=== PATIENT | female | born 1990 | race African-American/Black ===

== ENCOUNTER 2021-11-28 13:09 | Emergency (ER) | payer MEDICAID ==
[~2021-11-28] VITALS: Ht 170.2 cm; Wt 104.0 kg
[2021-11-28] MEDS ORDERED: BALANCED SALT IRRIG SOLN 15ML TOP ONE (14:45)
[2021-11-28] MEDS ORDERED: FLUORESCEIN SODIUM 1MG/STRIP BOTHEYE ONE (14:45)
[2021-11-28] MEDS ORDERED: TETRACAINE 0.5% OPHTH DROPS 4ML BOTHEYE ONE (14:45)
[2021-11-28] MEDS ORDERED: KETOROLAC 60MG/2ML VIAL IM ONE (15:15)
[2021-11-28] MEDS ORDERED: METOCLOPRAMIDE HCL 10MG TABLET PO ONE (15:15)
[2021-11-28 15:33] VITALS: BP 0/0
== END 2021-11-28 16:28 | disposition left against medical advice (07) ==
LOC: ER 13:09
DX: H57.13 Ocular pain, bilateral (principal); Z88.6 Allergy status to analgesic agent
CPT/HCPCS: 96372; 99283; J1885

== ENCOUNTER 2021-12-08 16:10 | Emergency (ER) | payer MEDICAID ==
[~2021-12-08] VITALS: Ht 162.6 cm; Wt 67.0 kg
[2021-12-08] MEDS ORDERED: HALOPERIDOL LACTATE 5MG/ML VIAL IM STA (18:16)
[2021-12-08] MEDS ORDERED: LORAZEPAM 2MG/ML CPJ IM STA (18:16)
[2021-12-08] MEDS ORDERED: DIPHENHYDRAMINE 50MG/ML VIAL IM ONE (18:45)
[2021-12-08] MEDS ORDERED: DIPHENHYDRAMINE 50MG/ML VIAL IM NR (20:00)
[2021-12-08 20:05] LABS: HEMATOCRIT. 27.6 % (36.0-48.0); HEMOGLOBIN. 8.4 g/dL (12.0-16.0); MEAN CORPUSCULAR HEMOGLOBIN 19.3 pg (28.0-32.0); MEAN CORPUSCULAR VOLUME 63.6 fL (81.0-99.0); MEAN PLATELET VOLUME 6.5 fl (7.4-10.4); PLATELET 542 x1000/uL (130-400); RED BLOOD CELL COUNT 4.34 mill/uL (4.2-5.4); RED CELL DISTRIBUTION WIDTH 21.2 % (11.6-14.6)
[2021-12-08 20:15] LABS: CHLORIDE 109 mEq/L (98-107)
[2021-12-08 20:32] LABS: ETHANOL BLOOD 206 mg/dL
[2021-12-08 20:34] LABS: HCG SCREEN NEGATIVE
[2021-12-08 22:03] LABS: PLATELET ESTIMATE INCREASED
[2021-12-09] MEDS ORDERED: DEXTROSE 50% WATER 50ML SYRINGE IV ONE (02:45)
[2021-12-09 11:58] VITALS: BP 178/112
== END 2021-12-09 12:05 | disposition home or self-care (01) ==
LOC: ER 16:10
DX: T51.0X1A Toxic effect of ethanol, accidental (unintentional), initial encounter (principal); R45.851 Suicidal ideations; R45.850 Homicidal ideations; R45.1 Restlessness and agitation; R53.83 Other fatigue; F10.129 Alcohol abuse with intoxication, unspecified; R11.10 Vomiting, unspecified; F44.89 Other dissociative and conversion disorders; Y90.7 Blood alcohol level of 200-239 mg/100 ml; Y92.488 Other paved roadways as the place of occurrence of the external cause; Z88.6 Allergy status to analgesic agent; Z78.1 Physical restraint status
CPT/HCPCS: 36415; 80053; 80307; 80320; 80329; 84443; 84703; 85025; 96372; 99284; J1200; J1630; J2060; G0480